=== PATIENT | female | born 1995 | race Caucasian/White ===

== ENCOUNTER 2018-10-03 06:10 | Day surgery (SDC) | payer OTHER ==
[2018-10-03] MEDS ORDERED: PROPOFOL 200 MG INJ (07:00)
[2018-10-03] MEDS ORDERED: PROPOFOL 60 ML ×2 (07:37→08:37)
[2018-10-03] MEDS ORDERED: LIDOCAINE 2% (SDV) 5 ML INJ ×2 (07:38→08:37)
[2018-10-03] MEDS ORDERED: EPHEDrine SULFATE 50 MG/5 ML SYG IV (09:00)
[2018-10-03] MEDS ORDERED: ONDANSETRON 4 MG INJ IV (09:00)
[2018-10-03] MEDS ORDERED: hydrALAzine 20 MG INJ IV (09:00)
[2018-10-03] MEDS ORDERED: LABETALOL HCL 20MG INJ IV (09:00)
[2018-10-03] MEDS ORDERED: FENTAnyl 50 MCG/ML VIAL IV (09:00)
[2018-10-03] MEDS ORDERED: METOCLOPRAMIDE 10 MG INJ IV (09:00)
== END 2018-10-03 13:32 | disposition home or self-care (01) ==
LOC: GIL 06:10
DX: K64.0 First degree hemorrhoids (principal)
CPT/HCPCS: 45378; 84703; 88305